=== PATIENT | female | born 1980 | race Caucasian/White ===

== ENCOUNTER 2020-01-20 12:01 | Inpatient (IN) ==
[2020-01-20] MEDS ORDERED: OXYTOCIN 30 UNITS/500 ML BAG IV PRN ×2 (13:20→18:08)
[2020-01-20] MEDS ORDERED: miSOPROStoL 50 MCG TAB PO ONE (13:20)
[2020-01-20 14:24] LABS: Hematocrit (blood only) 36.1 % (37-47); Hemoglobin 11.7 g/dL (12.0-16.0); Mean Corpuscular Hemoglobin 28.6 pg (25-34); Mean Corpuscular Volume 88.3 fL (80-100); Mean Platelet Volume 9.6 fL (7.4-10.4); Platelet Count 262 K/uL (130-400); RDW Standard Deviation 54.7 fL (36.4-46.3); Red Blood Count 4.09 M/uL (4.2-5.4); White Blood Count 11.36 K/uL (4.8-10.8)
[2020-01-20 14:29] LABS: Mean Corpuscular Hgb Conc 32.4 g/dL (32-36)
[2020-01-20 14:37] LABS: Albumin Level 2.4 gm/dl (3.4-5.0); BUN Creatinine Ratio 15.3 (10-20); Creatinine Clr Calc Pharmacy 167.5 ml/min; Est GFR (African American) 131.6; Est GFR (Non-African American) 113.6; Potassium 3.8 mmol/L (3.5-5.1)
[2020-01-20 14:40] LABS: Albumin Globulin Ratio 0.5 (0.9-2); Bilirubin,Total 0.2 mg/dl (0.2-1); Globulin 4.4 gm/dl (2.5-4.0); Total Protein 6.8 gm/dl (6.4-8.2)
--- NOTE | 2020-01-20 18:20 | Obstetrical Progress Note ---
Date of Service January 20, 2020 Subjective Pt doing well FHR; CAT1 Ctx; irregular last FS;89 VE 3/50/-2 Will start Pitocin augmentation Will start GBS prophylaxis Results & Data ([facility]) Vital Signs (Past 12 Hours) Vital Signs Temp Pulse Resp BP 01/20/20 15:15 37.0 C 89 20 132/64 01/20/20 13:06 90 144/67 H 01/20/20 12:56 85 145/70 H 01/20/20 12:50 36.8 C 20 01/20/20 12:47 91 H 150/77 H 01/20/20 12:36 98 H 148/81 H 01/20/20 12:26 105 H 137/82 01/20/20 12:16 90 135/83 01/20/20 12:11 97 H 130/84
[2020-01-20] MEDS ORDERED: PENICILLIN G POTASSIUM 6 MU in DEXTROSE 5% 250 ML IV ONE (18:30)
[2020-01-20] MEDS: LACTATED RINGER'S 1,000 ML IV PRN (18:38)
--- NOTE | 2020-01-20 22:22 | Obstetrical Progress Note ---
Date of Service January 20, 2020 Subjective Pt doing well FHR; CAT1 Ctx; 2-6mins VE; 07/20/2 Pit; 6Mu Results & Data ([facility]) Vital Signs (Past 12 Hours) Vital Signs Temp Pulse Resp BP 01/20/20 19:20 36.7 C 18 01/20/20 19:18 89 147/57 H 01/20/20 19:17 81 158/67 H 01/20/20 18:27 86 135/76 01/20/20 15:15 37.0 C 89 20 132/64 01/20/20 13:06 90 144/67 H 01/20/20 12:56 85 145/70 H 01/20/20 12:50 36.8 C 01/20/20 12:47 91 H 150/77 H 01/20/20 12:36 98 H 148/81 H 01/20/20 12:26 105 H 137/82 01/20/20 12:16 90 135/83 01/20/20 12:11 97 H 130/84
[2020-01-20] MEDS: PENICILLIN G POTASSIUM 3 MU in DEXTROSE 5% 100 ML IV PRN (22:39)
[2020-01-20] MEDS ORDERED: diphenhydrAMINE 50 MG/ML VIAL IV PRN (22:44)
[2020-01-20] MEDS ORDERED: ePHEDrine sulfate 50 MG/ML AMP ONE (22:44)
[2020-01-20] MEDS ORDERED: NALOXONE HCL 1 MG in SODIUM CHLORIDE 0.9% 1000ML 1,000 ML IV PRN (22:44)
[2020-01-20] MEDS ORDERED: ONDANSETRON INJ 2 MG/ML 2 ML VIAL IV PRN (22:44)
[2020-01-20] MEDS ORDERED: ePHEDrine sulfate 50 MG/ML AMP IV PRN (22:44)
[2020-01-20] MEDS ORDERED: BUPIVACAINE 0.25% 30 ML VIAL ONE (22:44)
[2020-01-20] MEDS ORDERED: PROMETHAZINE HCL 25 MG in SODIUM CHLORIDE 0.9% 50 ML IV PRN (22:44)
[2020-01-20] MEDS ORDERED: NALOXONE HCL 0.4 MG/1 ML VIAL/CARP IV PRN (22:44)
[2020-01-20] MEDS ORDERED: fentaNYL 2MCG/ML ROPIVACAINE 1.25MG/ML 100 ML BAG EPI ONE (22:45)
--- NOTE | 2020-01-20 22:45 | Anesthesiology Consultation ---
Date of Service January 20, 2020 Assessment & Plan ASA ASA2 Proposed Anesthesia Anesthesia Type: General Risk / Benefits Reviewed With: PT / POA / Parent / Guardian, Accepts Plan and Informed Consent Obtained History Height/Weight Height: 5 ft 6.5 in Weight: 127.006 kg Allergies Allergy/AdvReac Type Severity Reaction Status Date / Time latex Allergy Severe Rash Verified 01/20/20 12:16 Medications Home Medications Medication Instructions Recorded Confirmed Last Taken cholecalciferol (vitamin D3) 25 mcg PO DAILY 09/18/19 01/20/20 01/20/20 [Vitamin D3] insulin aspart U-100 [Novolog See Rx Instructions .ROUTE .COMPLEX 09/18/19 01/20/20 01/19/20 Flexpen U-100 Insulin] insulin detemir U-100 [Levemir 90 unit SUBCUT AMPM 09/18/19 01/20/20 01/19/20 FlexTouch U-100 Insuln] metformin 1,000 mg PO BID 09/18/19 01/20/20 01/20/20 omeprazole magnesium [Prilosec OTC] 20 mg PO DAILY 12/27/19 01/20/20 01/20/20 prenat.vits,traci,qws-navv-cdbmy 1 tab PO DAILY 12/27/19 01/20/20 01/20/20 [ Vitamin] ferrous sulfate [iron] 325 mg PO DAILY 01/06/20 01/20/20 01/20/20 Active Medications Generic Name Dose Route Start Last Admin Trade Name Freq PRN Reason Stop Dose Admin Lactated Ringer's 1,000 mls @ 125 mls/hr 01/20/20 13:20 01/20/20 19:40 Lr IV 01/22/20 13:19 125 mls/hr .Q8H PRN Infusion L&D Protocol Protocol Penicillin G Potassium 3 mu/ 106 mls @ 100 mls/hr 01/20/20 18:07 01/20/20 22:39 Dextrose IV 01/30/20 18:06 100 mls/hr Q4H PRN Administration Give until delivery Oxytocin 30 units in 500 mls @ 4 mls/hr 01/20/20 18:08 01/20/20 20:25 Pitocin IV 01/22/20 18:07 0.24 units/hr .Q24H PRN 4 mls/hr Labor Induction/Augmentation Titration Protocol 0.24 UNITS/HR Past Medical History Medical History (Updated 01/20/20 @ 12:26 by Osiris Frazier RN) Agoraphobia Anxiety Asthma Diabetes History of pre-eclampsia Low back pain Migraines Panic disorder PTSD (post-traumatic stress disorder) Right hip pain Exercise / Class Metabolic Activity II 4-5 Yardwork/Stairs/Walk up hill Past Surgical History Surgical History (Updated 01/06/20 @ 22:26 by Jaelyn Perry PA-C) No pertinent past surgical history Past Anesthesia History No Hx of Anesthesia Complications and No Family Hx of Anesthesia Complications History of PONV No Hx of PONV and No Hx of Motion Sickness Social History Smoking Status: Never smoker Hx Alcohol Use: No Hx Substance Use: No Review of Systems denies fever/cough/ colds/ chest pain/ SOB/ ZACH Constitutional: no fever and no chills Respiratory: no cough and no dyspnea denies ZACH Cardiovascular: no chest pain and no dyspnea on exertion Physical Exam Vital Signs Last Vital Signs Temp 36.7 C 01/20/20 19:20 Pulse 86 01/20/20 22:42 Resp 18 01/20/20 19:20 BP 145/72 H 01/20/20 22:42 ENMT Mouth: no TMJ abnormality and no dentition abnormality Thyromental Distance: > or= 3.5 Finger Breadths Mallampati Class: II Neck neck extension not limited Respiratory normal respiratory effort; no respiratory distress Auscultation: lungs clear to auscultation bilaterally Cardiovascular Rate/Rhythm: regular rate and regular rhythm Neurologic moves all extremities Psychiatric Orientation: alert and oriented x 3 Testing Laboratory Results 01/20/20 14:08 01/20/20 14:08 01/20/20 01/20/20 20:14 14:14 POC Glucose 111 H 89
[2020-01-20] MEDS ORDERED: fentaNYL citrate 100 MCG/2 ML VIAL ONE (23:24)
[2020-01-20] MEDS ORDERED: ACETAMINOPHEN 1,000 MG/100 ML VIAL IV PRN (23:35)
[2020-01-21] MEDS: PENICILLIN G POTASSIUM 3 MU in DEXTROSE 5% 100 ML IV PRN ×5 (02:45→19:26)
--- NOTE | 2020-01-21 03:47 | Obstetrical Progress Note ---
Date of Service January 21, 2020 Subjective Pt doing well Completed 2 courses of antibx. FHR; CAT1 Ctx; irreg Pit; 6MU VE: /-2 Attempt to AROM with amnio hook - unsuccessful continue with Pitocin augmentation Results & Data ([facility]) Vital Signs (Past 12 Hours) Vital Signs Temp Pulse Resp BP Pulse Ox 01/21/20 03:39 78 97 01/21/20 03:38 88 149/73 H 01/21/20 03:34 77 98 01/21/20 03:29 70 97 01/21/20 03:24 72 97 01/21/20 03:22 75 150/67 H 01/21/20 03:19 72 97 01/21/20 03:14 71 97 01/21/20 03:09 77 97 01/21/20 03:08 68 152/69 H 01/21/20 03:04 79 96 01/21/20 02:59 89 98 01/21/20 02:54 87 152/81 H 97 01/21/20 02:49 87 97 01/21/20 02:44 89 98 01/21/20 02:39 70 97 01/21/20 02:37 69 128/55 L 01/21/20 02:34 65 96 01/21/20 02:29 67 96 01/21/20 02:24 67 95 01/21/20 02:23 64 131/63 01/21/20 02:19 67 95 01/21/20 02:14 78 95 01/21/20 02:10 67 127/61 01/21/20 02:09 71 96 01/21/20 02:04 67 96 01/21/20 01:59 90 98 01/21/20 01:54 66 97 01/21/20 01:52 67 122/58 L 01/21/20 01:49 75 96 01/21/20 01:44 78 96 01/21/20 01:39 73 97 01/21/20 01:37 78 118/58 L 01/21/20 01:34 77 97 01/21/20 01:30 18 01/21/20 01:29 67 97 01/21/20 01:24 64 97 01/21/20 01:22 70 121/58 L 01/21/20 01:19 69 97 01/21/20 01:14 65 95 01/21/20 01:11 72 88 L 01/21/20 01:09 67 127/56 L 96 01/21/20 01:04 69 98 01/21/20 01:00 76 18 87 L 01/21/20 00:59 70 92 01/21/20 00:54 68 97 01/21/20 00:52 71 121/55 L 01/21/20 00:49 65 96 01/21/20 00:44 67 96 01/21/20 00:42 76 88 L 01/21/20 00:39 67 93 01/21/20 00:37 69 113/55 L 89 L 01/21/20 00:34 65 95 01/21/20 00:30 18 01/21/20 00:29 68 96 01/21/20 00:24 71 113/53 L 92 01/21/20 00:19 68 96 01/21/20 00:14 68 95 01/21/20 00:09 70 94 01/21/20 00:08 73 123/57 L 01/21/20 00:04 69 96 01/21/20 00:00 18 01/20/20 23:59 65 95 01/20/20 23:54 72 131/59 L 95 01/20/20 23:49 66 95 01/20/20 23:44 81 96 01/20/20 23:39 80 97 01/20/20 23:37 70 125/59 L 01/20/20 23:35 65 123/58 L 01/20/20 23:34 77 97 01/20/20 23:33 68 130/56 L 01/20/20 23:31 86 133/62 01/20/20 23:30 81 144/64 H 01/20/20 23:29 76 97 01/20/20 23:24 75 97 01/20/20 23:22 75 151/81 H 01/20/20 23:19 83 97 01/20/20 23:14 102 H 98 01/20/20 23:10 102 H 92 01/20/20 23:09 96 H 98 01/20/20 23:04 96 H 98 01/20/20 22:59 96 H 100 01/20/20 22:54 90 99 01/20/20 22:42 86 145/72 H 01/20/20 19:20 36.7 C 18 01/20/20 19:18 89 147/57 H 01/20/20 19:17 81 158/67 H 01/20/20 18:27 86 135/76
[2020-01-21] MEDS: LACTATED RINGER'S 1,000 ML IV PRN ×2 (05:10→14:04)
[2020-01-21] MEDS: fentaNYL 2MCG/ML ROPIVACAINE 1.25MG/ML 100 ML BAG EPI PRN ×4 (05:12→15:13)
--- NOTE | 2020-01-21 11:53 | Obstetrical Progress Note ---
Date of Service January 21, 2020 Assessment & Plan Admission and Anticipated Discharge Date Admission Date: January 20, 2020 Physical Exam Genitourinary: Manual OB Exam: + cervical dilation 4 cm, + cervical effacement 60% and + station high OB Exam Monitor Tracing: + external FHT monitor used, + external uterine monitor used, + category I and + normal FHT variability Results & Data ([facility]) Vital Signs (Past 12 Hours) Vital Signs Temp Pulse Resp BP Pulse Ox 01/21/20 11:49 81 98 01/21/20 11:44 69 95 01/21/20 11:39 81 97 01/21/20 11:38 81 144/68 H 01/21/20 11:34 85 98 01/21/20 11:29 67 94 01/21/20 11:24 68 97 01/21/20 11:23 61 135/72 01/21/20 11:19 66 96 01/21/20 11:14 81 97 01/21/20 11:09 84 96 01/21/20 11:08 80 129/103 H 01/21/20 11:04 94 H 97 01/21/20 10:59 88 97 01/21/20 10:54 81 142/65 H 97 01/21/20 10:49 70 96 01/21/20 10:44 79 96 01/21/20 10:39 92 H 130/65 97 01/21/20 10:34 80 97 01/21/20 10:29 81 97 01/21/20 10:24 81 136/62 97 01/21/20 10:19 81 98 01/21/20 10:14 84 97 01/21/20 10:09 73 136/95 97 01/21/20 10:04 79 97 01/21/20 09:59 83 97 01/21/20 09:54 74 96 01/21/20 09:53 75 133/62 01/21/20 09:49 75 96 01/21/20 09:44 70 96 01/21/20 09:39 84 97 01/21/20 09:37 80 144/65 H 01/21/20 09:34 88 97 01/21/20 09:29 66 96 01/21/20 09:24 72 97 01/21/20 09:19 69 96 01/21/20 09:16 68 88 L 01/21/20 09:14 68 93 09/25/20 09:09 69 93 01/21/20 09:04 67 95 01/21/20 09:02 64 86 L 01/21/20 08:59 64 97 01/21/20 08:54 60 97 01/21/20 08:49 68 96 01/21/20 08:48 74 88 L 01/21/20 08:47 18 01/21/20 08:44 59 L 96 01/21/20 08:42 72 86 L 01/21/20 08:39 65 91 01/21/20 08:36 67 87 L 01/21/20 08:34 64 94 01/21/20 08:30 18 01/21/20 08:29 64 95 01/21/20 08:24 65 95 01/21/20 08:19 70 96 01/21/20 08:14 65 94 01/21/20 08:12 72 89 L 01/21/20 08:09 66 97 01/21/20 08:08 62 20 137/63 01/21/20 08:04 71 96 01/21/20 07:59 77 96 01/21/20 07:54 77 136/112 H 97 01/21/20 07:49 84 98 01/21/20 07:44 81 98 01/21/20 07:40 36.7 C 20 01/21/20 07:39 72 139/67 97 01/21/20 07:34 89 97 01/21/20 07:29 77 97 01/21/20 07:24 73 96 01/21/20 07:23 87 135/62 01/21/20 07:19 79 96 01/21/20 07:14 83 98 01/21/20 07:09 81 97 01/21/20 07:08 77 132/63 01/21/20 07:04 80 97 01/21/20 06:59 82 96 01/21/20 06:54 89 98 01/21/20 06:52 77 136/62 01/21/20 06:49 75 96 01/21/20 06:44 86 97 01/21/20 06:39 83 144/65 H 98 01/21/20 06:34 87 97 01/21/20 06:29 82 96 01/21/20 06:24 72 121/58 L 94 01/21/20 06:19 76 95 01/21/20 06:14 71 93 01/21/20 06:09 75 93 01/21/20 06:07 76 127/58 L 89 L 01/21/20 06:04 65 92 01/21/20 06:01 78 86 L 01/21/20 05:59 73 96 01/21/20 05:55 68 89 L 01/21/20 05:54 64 95 01/21/20 05:52 67 122/58 L 01/21/20 05:49 65 94 01/21/20 05:44 73 95 01/21/20 05:39 72 96 01/21/20 05:37 72 131/59 L 01/21/20 05:34 82 96 01/21/20 05:29 75 96 01/21/20 05:24 74 96 01/21/20 05:23 67 132/59 L 01/21/20 05:19 71 95 01/21/20 05:14 79 96 01/21/20 05:09 78 132/64 97 01/21/20 05:04 73 95 01/21/20 04:59 72 96 01/21/20 04:54 75 97 01/21/20 04:53 75 131/61 01/21/20 04:49 74 96 01/21/20 04:44 74 96 01/21/20 04:39 94 H 97 01/21/20 04:38 75 138/64 01/21/20 04:34 76 96 01/21/20 04:29 86 97 01/21/20 04:24 82 97 01/21/20 04:22 74 138/66 01/21/20 04:19 72 96 01/21/20 04:14 79 97 01/21/20 04:09 78 131/66 97 01/21/20 04:04 95 H 98 01/21/20 03:59 71 95 01/21/20 03:54 76 133/63 95 01/21/20 03:49 79 97 01/21/20 03:44 73 96 01/21/20 03:39 78 97 01/21/20 03:38 88 149/73 H 01/21/20 03:34 77 98 01/21/20 03:29 70 97 01/21/20 03:24 72 97 09/25/20 03:22 75 150/67 H 01/21/20 03:19 72 97 01/21/20 03:14 71 97 01/21/20 03:09 77 97 01/21/20 03:08 68 152/69 H 01/21/20 03:04 79 96 01/21/20 02:59 89 98 01/21/20 02:54 87 152/81 H 97 01/21/20 02:49 87 97 01/21/20 02:44 89 98 01/21/20 02:39 70 97 01/21/20 02:37 69 128/55 L 01/21/20 02:34 65 96 01/21/20 02:29 67 96 01/21/20 02:24 67 95 01/21/20 02:23 64 131/63 01/21/20 02:19 67 95 01/21/20 02:14 78 95 01/21/20 02:10 67 127/61 01/21/20 02:09 71 96 01/21/20 02:04 67 96 01/21/20 01:59 90 98 01/21/20 01:54 66 97 01/21/20 01:52 67 122/58 L 01/21/20 01:49 75 96 01/21/20 01:44 78 96 01/21/20 01:39 73 97 01/21/20 01:37 78 118/58 L 01/21/20 01:34 77 97 01/21/20 01:30 18 01/21/20 01:29 67 97 01/21/20 01:24 64 97 01/21/20 01:22 70 121/58 L 01/21/20 01:19 69 97 01/21/20 01:14 65 95 01/21/20 01:11 72 88 L 01/21/20 01:09 67 127/56 L 96 01/21/20 01:04 69 98 01/21/20 01:00 76 18 87 L 01/21/20 00:59 70 92 01/21/20 00:54 68 97 01/21/20 00:52 71 121/55 L 01/21/20 00:49 65 96 01/21/20 00:44 67 96 01/21/20 00:42 76 88 L 01/21/20 00:39 67 93 01/21/20 00:37 69 113/55 L 89 L 01/21/20 00:34 65 95 01/21/20 00:30 18 01/21/20 00:29 68 96 01/21/20 00:24 71 113/53 L 92 01/21/20 00:19 68 96 01/21/20 00:14 68 95 01/21/20 00:09 70 94 01/21/20 00:08 73 123/57 L 01/21/20 00:04 69 96 01/21/20 00:00 18 01/20/20 23:59 65 95 01/20/20 23:54 72 131/59 L 95
--- NOTE | 2020-01-21 17:02 | Obstetrical Progress Note ---
Date of Service January 21, 2020 Assessment & Plan Admission and Anticipated Discharge Date Admission Date: January 20, 2020 Physical Exam Genitourinary: Manual OB Exam: + cervical dilation 4 cm, + cervical effacement 80%, + station -2 and + amniotic fluid clear OB Exam Monitor Tracing: + external FHT monitor used, + external uterine monitor used, + category I and + normal FHT variability AROM with Amni-hook clear fluid Results & Data ([facility]) Vital Signs (Past 12 Hours) Vital Signs Temp Pulse Resp BP Pulse Ox 01/21/20 16:59 87 99 01/21/20 16:57 90 151/86 H 01/21/20 16:54 81 97 01/21/20 16:49 85 98 01/21/20 16:44 80 99 01/21/20 16:39 77 98 01/21/20 16:34 82 97 01/21/20 16:29 80 98 01/21/20 16:25 76 125/58 L 01/21/20 16:24 77 97 01/21/20 16:19 83 97 01/21/20 16:14 75 97 01/21/20 16:09 65 96 01/21/20 16:04 77 98 01/21/20 15:59 85 98 01/21/20 15:55 64 135/62 01/21/20 15:54 68 96 01/21/20 15:49 62 96 01/21/20 15:44 66 94 01/21/20 15:39 66 97 01/21/20 15:34 72 97 01/21/20 15:29 74 98 01/21/20 15:25 61 22 141/63 H 97 01/21/20 15:24 65 97 01/21/20 15:19 65 96 01/21/20 15:14 77 97 01/21/20 15:09 69 94 01/21/20 15:04 66 96 01/21/20 14:59 67 97 01/21/20 14:56 57 L 115/56 L 01/21/20 14:54 64 97 01/21/20 14:49 62 97 01/21/20 14:44 71 97 01/21/20 14:39 65 97 01/21/20 14:34 69 97 01/21/20 14:29 67 96 01/21/20 14:26 60 116/66 01/21/20 14:24 62 97 01/21/20 14:19 66 96 01/21/20 14:14 65 96 01/21/20 14:09 81 96 01/21/20 14:04 67 97 01/21/20 13:59 69 96 01/21/20 13:55 37.0 C 63 18 134/62 01/21/20 13:54 70 96 01/21/20 13:49 79 97 01/21/20 13:44 90 97 01/21/20 13:39 77 97 01/21/20 13:34 77 96 01/21/20 13:29 79 146/68 H 96 01/21/20 13:24 66 97 01/21/20 13:19 66 97 01/21/20 13:14 63 94 01/21/20 13:09 62 95 01/21/20 13:04 71 95 01/21/20 12:59 66 96 01/21/20 12:54 66 131/60 96 01/21/20 12:49 64 93 01/21/20 12:44 73 95 01/21/20 12:40 65 157/74 H 01/21/20 12:39 63 97 01/21/20 12:34 61 96 01/21/20 12:29 65 96 01/21/20 12:24 69 157/71 H 95 01/21/20 12:19 61 97 01/21/20 12:14 66 96 01/21/20 12:09 66 151/70 H 95 01/21/20 12:04 67 96 01/21/20 11:59 70 96 01/21/20 11:54 80 155/71 H 97 01/21/20 11:49 81 98 01/21/20 11:44 69 95 01/21/20 11:39 81 97 01/21/20 11:38 81 144/68 H 01/21/20 11:34 85 98 01/21/20 11:29 67 94 01/21/20 11:24 68 97 01/21/20 11:23 61 135/72 01/21/20 11:19 66 96 01/21/20 11:14 81 97 01/21/20 11:09 84 96 01/21/20 11:08 80 129/103 H 01/21/20 11:04 94 H 97 09/25/20 10:59 88 97 20 10:54 81 142/65 H 97 20 10:49 70 96 20 10:44 79 96 20 10:39 92 H 130/65 97 20 10:34 80 97 20 10:29 81 97 20 10:24 81 136/62 97 20 10:19 81 98 01/21/20 10:14 84 97 01/21/20 10:09 73 136/95 97 01/21/20 10:04 79 97 01/21/20 09:59 83 97 01/21/20 09:54 74 96 01/21/20 09:53 75 133/62 01/21/20 09:49 75 96 01/21/20 09:44 70 96 01/21/20 09:39 84 97 01/21/20 09:37 80 144/65 H 01/21/20 09:34 88 97 01/21/20 09:29 66 96 01/21/20 09:24 72 97 01/21/20 09:19 69 96 01/21/20 09:16 68 88 L 01/21/20 09:14 68 93 01/21/20 09:09 69 93 01/21/20 09:04 67 95 01/21/20 09:02 64 86 L 01/21/20 08:59 64 97 01/21/20 08:54 60 97 01/21/20 08:49 68 96 01/21/20 08:48 74 88 L 01/21/20 08:47 18 01/21/20 08:44 59 L 96 01/21/20 08:42 72 86 L 01/21/20 08:39 65 91 20 08:36 67 87 L 01/21/20 08:34 64 94 01/21/20 08:30 18 01/21/20 08:29 64 95 01/21/20 08:24 65 95 20 08:19 70 96 01/21/20 08:14 65 94 01/21/20 08:12 72 89 L 01/21/20 08:09 66 97 01/21/20 08:08 62 20 137/63 01/21/20 08:04 71 96 09/25/20 07:59 77 96 09/25/20 07:54 77 136/112 H 97 20 07:49 84 98 20 07:44 81 98 20 07:40 36.7 C 20 20 07:39 72 139/67 97 25/20 07:34 89 97 20 07:29 77 97 20 07:24 73 96 20 07:23 87 135/62 20 07:19 79 96 20 07:14 83 98 20 07:09 81 97 20 07:08 77 132/63 20 07:04 80 97 20 06:59 82 96 20 06:54 89 98 20 06:52 77 136/62 01/20/20 06:49 75 96 20 06:44 86 97 01/21/20 06:39 83 144/65 H 98 01/21/20 06:34 87 97 20 06:29 82 96 20 06:24 72 121/58 L 94 20 06:19 76 95 20 06:14 71 93 20 06:09 75 93 20 06:07 76 127/58 L 89 L 20 06:04 65 92 20 06:01 78 86 L 20 05:59 73 96 20 05:55 68 89 L 20 05:54 64 95 20 05:52 67 122/58 L 01/20/20 05:49 65 94 25/20 05:44 73 95 25/20 05:39 72 96 01/20/20 05:37 72 131/59 L 20 05:34 82 96 01/20/20 05:29 75 96 01/20/20 05:24 74 96 25/20 05:23 67 132/59 L 25/20 05:19 71 95 25/20 05:14 79 96 20 05:09 78 132/64 97 20 05:04 73 95
[2020-01-21] MEDS ORDERED: fentaNYL citrate 100 MCG/2 ML VIAL ONE ×2 (17:20→18:05)
[2020-01-21] MEDS ORDERED: LIDOCAINE HCL 2% MPF (LOCAL) 5 ML VIAL INFIL ONE (17:20)
[2020-01-21] MEDS ORDERED: ePHEDrine sulfate 50 MG/ML AMP ONE (18:04)
[2020-01-21] MEDS ORDERED: BUPIVACAINE 0.25% 30 ML VIAL ONE (18:04)
[2020-01-21] MEDS ORDERED: fentaNYL 2MCG/ML ROPIVACAINE 1.25MG/ML 100 ML BAG EPI ONE (18:05)
[2020-01-21] MEDS ORDERED: NALOXONE HCL 1 MG in SODIUM CHLORIDE 0.9% 1000ML 1,000 ML IV PRN (18:50)
[2020-01-21] MEDS ORDERED: diphenhydrAMINE 50 MG/ML VIAL IV PRN (18:50)
[2020-01-21] MEDS ORDERED: NALOXONE HCL 0.4 MG/1 ML VIAL/CARP IV PRN (18:50)
[2020-01-21] MEDS ORDERED: ePHEDrine sulfate 50 MG/ML AMP IV PRN (18:50)
[2020-01-21] MEDS ORDERED: fentaNYL 2MCG/ML ROPIVACAINE 1.25MG/ML 100 ML BAG EPI PRN (18:50)
--- NOTE | 2020-01-21 20:00 | Delivery Summary ---
Vaginal Delivery Summary Date of Service January 21, 2020 Vaginal Delivery Summary Delivery Note live female LAISHA over intact perineum with Apgars 8/9 weight pending. Delayed cord clamping followed by cord blood and spontaneous delivery of intact placenta with 3VC and true knot x1. No tears. EBL 100 ml. Final sponge and instrument count are correct. Mom and baby stable.
--- NOTE | 2020-01-21 20:16 | Anesthesia Procedure Note ---
Date of Service January 21, 2020 Anesthesia Post Epidural Note Vital Signs Vital Signs: Temp Pulse Resp BP Pulse Ox 36.5 C 102 H 20 157/67 H 98 01/21/20 19:18 01/21/20 20:02 01/21/20 19:36 01/21/20 20:02 01/21/20 19:49 Pain Intensity Abdomen: Pain Intensity: 2 Notes Mental Status: alert / awake / arousable Nausea / Vomiting: adequately controlled Pain: adequately controlled Airway Patency, RR, SpO2: stable & adequate BP & HR: stable & adequate Hydration State: stable & adequate Neuraxial Anesthesia: was administered and sensory block is resolving Anesthetic Complications: no major complications apparent and Pt Satisfied with anesthetic care Epidural: Removed without complications and With tip intact
[2020-01-21] MEDS ORDERED: HYDROCORTISONE ACETATE 25 MG SUPP PR PRN (20:55)
[2020-01-21] MEDS ORDERED: BENZOCAINE 20% AER SPR 82.5 GM CAN EXT PRN (20:55)
[2020-01-21] MEDS ORDERED: DIPHTHERIA/TETANUS/PERTUSSIS 0.5 ML SYR/VIAL IM ONE (20:55)
[2020-01-21] MEDS ORDERED: SUPERCREAM 0.870% 15 GM JAR EXT PRN (20:55)
[2020-01-21] MEDS ORDERED: bisacodyL 10 MG SUPP PR PRN (20:55)
[2020-01-21] MEDS ORDERED: OXYTOCIN 30 UNITS/500 ML BAG IV PRN (20:55)
[2020-01-21] MEDS: ACETAMINOPHEN 325 MG TAB PO PRN (21:13)
[2020-01-21] MEDS: DOCUSATE SODIUM 100 MG CAP PO SCH (21:14)
[2020-01-22] MEDS: ACETAMINOPHEN 325 MG TAB PO PRN ×4 (01:44→20:45)
[2020-01-22 06:36] LABS: Hematocrit (blood only) 35.3 % (37-47); Hemoglobin 11.1 g/dL (12.0-16.0); Mean Corpuscular Hemoglobin 28.1 pg (25-34); Mean Corpuscular Hgb Conc 31.4 g/dL (32-36); Mean Corpuscular Volume 89.4 fL (80-100); Mean Platelet Volume 9.4 fL (7.4-10.4); Platelet Count 246 K/uL (130-400); RDW Coefficient of Variation 17.1 % (11.5-14.5); RDW Standard Deviation 55.3 fL (36.4-46.3); Red Blood Count 3.95 M/uL (4.2-5.4); White Blood Count 11.25 K/uL (4.8-10.8)
[2020-01-22] MEDS: FERROUS SULFATE 325 MG TAB PO SCH (07:40)
[2020-01-22] MEDS: PRENATAL VITAMIN 1 TAB PO SCH (07:40)
[2020-01-22] MEDS: DOCUSATE SODIUM 100 MG CAP PO SCH ×2 (07:40→20:38)
[2020-01-22] MEDS ORDERED: NON-FORMULARY MEDICATION (Prenat.Vits,Cal,Min-Iron-Folic 1 TAB) PO SCH (09:00)
[2020-01-22] MEDS ORDERED: NON-FORMULARY MEDICATION (Ferrous Sulfate [Iron] 325 MG) PO SCH (09:00)
[2020-01-22] MEDS: PANTOprazole 40 MG TAB PO SCH (09:05)
[2020-01-22] MEDS: CHOLECALCIFEROL 1,000 UNITS 25 MCG TAB PO SCH (09:05)
[2020-01-22] MEDS: metFORMIN HCL 500 MG TAB PO SCH ×2 (09:06→17:16)
[2020-01-22] MEDS: IBUPROFEN 600 MG TAB PO PRN ×2 (09:08→17:15)
--- NOTE | 2020-01-22 09:51 | Obstetrical Progress Note ---
Date of Service January 22, 2020 Assessment & Plan Admission and Anticipated Discharge Date Admission Date: January 20, 2020 Subjective Patient is seen and examined. She feels well, no complaints. Ambulating without dizziness Voiding without difficulty Tolerating regular diet with out N&V Bleeding is minimal No fever/ chills/ CP/ SOB/ N&V/ Leg pain Breast feeding without problems Vital Signs Temp Pulse Pulse Resp BP BP Pulse Ox 01/22/20 04:40 36.6 C 76 18 121/78 01/21/20 23:15 36.7 C 93 H 18 132/82 01/21/20 21:54 92 H 143/67 H 01/21/20 21:50 36.7 C 95 H 18 138/71 01/21/20 21:35 84 140/75 01/21/20 21:20 93 H 18 132/65 01/21/20 21:05 101 H 131/63 01/21/20 20:50 93 H 18 132/65 01/21/20 20:35 102 H 18 140/65 01/21/20 20:20 96 H 18 128/89 01/21/20 20:05 18 01/21/20 20:02 102 H 157/67 H 01/21/20 19:50 20 01/21/20 19:49 103 H 98 01/21/20 19:47 83 162/70 H 01/21/20 19:44 94 H 97 01/21/20 19:42 91 H 165/73 H 01/21/20 19:39 113 H 98 01/21/20 19:38 118 H 138/73 01/21/20 19:36 115 H 20 80 L 01/21/20 19:34 99 H 196/82 H 99 01/21/20 19:29 95 H 100 01/21/20 19:28 84 152/78 H 01/21/20 19:24 91 H 173/70 H 99 01/21/20 19:19 81 100 01/21/20 19:18 36.5 C 18 01/21/20 19:17 85 145/70 H 01/21/20 19:14 77 99 01/21/20 19:12 92 H 144/80 H 01/21/20 19:09 84 140/83 97 01/21/20 19:04 97 H 98 01/21/20 19:03 36.5 C 83 18 130/104 H 01/21/20 18:59 72 96 01/21/20 18:58 75 137/71 01/21/20 18:54 84 139/69 96 01/21/20 18:49 78 97 01/21/20 18:47 80 18 137/72 01/21/20 18:44 96 H 97 01/21/20 18:42 82 137/74 01/21/20 18:39 88 96 01/21/20 18:38 88 139/76 01/21/20 18:34 94 H 96 01/21/20 18:33 95 H 136/89 01/21/20 18:29 103 H 20 97 01/21/20 18:27 103 H 138/66 01/21/20 18:24 91 H 143/69 H 96 01/21/20 18:21 98 H 154/72 H 01/21/20 18:20 96 H 86 L 01/21/20 18:19 101 H 96 01/21/20 18:17 109 H 142/80 H 01/21/20 18:14 124 H 98 01/21/20 18:12 103 H 129/80 01/21/20 18:10 87 127/61 01/21/20 18:09 107 H 100 01/21/20 18:04 99 H 165/74 H 96 01/21/20 17:59 75 94 01/21/20 17:58 95 H 22 182/84 H 01/21/20 17:54 69 22 165/74 H 94 01/21/20 17:49 101 H 20 95 01/21/20 17:47 87 155/81 H 01/21/20 17:44 97 H 98 01/21/20 17:43 88 18 150/71 H 01/21/20 17:39 90 97 01/21/20 17:38 74 150/67 H 01/21/20 17:34 88 99 01/21/20 17:33 86 143/75 H 01/21/20 17:29 87 96 01/21/20 17:26 70 149/70 H 01/21/20 17:24 76 97 01/21/20 17:19 80 98 01/21/20 17:14 72 98 01/21/20 17:09 80 99 01/21/20 17:04 82 98 01/21/20 16:59 87 99 09/25/20 16:57 90 151/86 H 01/21/20 16:54 81 97 01/21/20 16:49 85 98 01/21/20 16:44 80 99 01/21/20 16:39 77 98 01/21/20 16:34 82 97 01/21/20 16:29 80 98 01/21/20 16:25 76 125/58 L 01/21/20 16:24 77 97 01/21/20 16:19 83 97 01/21/20 16:14 75 97 01/21/20 16:09 65 96 01/21/20 16:04 77 98 01/21/20 15:59 85 98 01/21/20 15:55 64 135/62 01/21/20 15:54 68 96 01/21/20 15:49 62 96 01/21/20 15:44 66 94 01/21/20 15:39 66 97 01/21/20 15:34 72 97 01/21/20 15:29 74 98 01/21/20 15:25 61 22 141/63 H 97 01/21/20 15:24 65 97 01/21/20 15:19 65 96 01/21/20 15:14 77 97 01/21/20 15:09 69 94 01/21/20 15:04 66 96 01/21/20 14:59 67 97 01/21/20 14:56 57 L 115/56 L 01/21/20 14:54 64 97 01/21/20 14:49 62 97 01/21/20 14:44 71 97 01/21/20 14:39 65 97 01/21/20 14:34 69 97 01/21/20 14:29 67 96 01/21/20 14:26 60 116/66 01/21/20 14:24 62 97 01/21/20 14:19 66 96 01/21/20 14:14 65 96 01/21/20 14:09 81 96 01/21/20 14:04 67 97 01/21/20 13:59 69 96 01/21/20 13:55 37.0 C 63 18 134/62 01/21/20 13:54 70 96 01/21/20 13:49 79 97 01/21/20 13:44 90 97 01/21/20 13:39 77 97 09/25/20 13:34 77 96 25/20 13:29 79 146/68 H 96 25/20 13:24 66 97 25/20 13:19 66 97 01/20/20 13:14 63 94 25/20 13:09 62 95 01/20/20 13:04 71 95 01/20/20 12:59 66 96 01/20/20 12:54 66 131/60 96 01/20/20 12:49 64 93 01/20/20 12:44 73 95 01/20/20 12:40 65 157/74 H 01/20/20 12:39 63 97 01/20/20 12:34 61 96 01/20/20 12:29 65 96 01/20/20 12:24 69 157/71 H 95 01/20/20 12:19 61 97 01/20/20 12:14 66 96 20 12:09 66 151/70 H 95 20 12:04 67 96 20 11:59 70 96 01/20/20 11:54 80 155/71 H 97 01/20/20 11:49 81 98 01/20/20 11:44 69 95 01/20/20 11:39 81 97 01/20/20 11:38 81 144/68 H 20 11:34 85 98 01/20/20 11:29 67 94 01/20/20 11:24 68 97 01/20/20 11:23 61 135/72 01/20/20 11:19 66 96 01/20/20 11:14 81 97 20 11:09 84 96 01/20/20 11:08 80 129/103 H 01/20/20 11:04 94 H 97 01/20/20 10:59 88 97 25/20 10:54 81 142/65 H 97 01/20/20 10:49 70 96 01/20/20 10:44 79 96 01/20/20 10:39 92 H 130/65 97 25/20 10:34 80 97 01/20/20 10:29 81 97 25/20 10:24 81 136/62 97 25/20 10:19 81 98 25/20 10:14 84 97 25/20 10:09 73 136/95 97 01/21/20 10:04 79 97 01/21/20 09:59 83 97 01/21/20 09:54 74 96 01/21/20 09:53 75 133/62 Intake and Output 01/21/20 01/22/20 01/22/20 22:59 06:59 14:59 Intake Total 1688.433 / 2660.716 Output Total 250 / 850 Balance 1438.433 / 1810.716 Intake: IV 1688.433 / 2660.716 Lr 1,000 ml @ 125 mls/hr IV . 741.666 / 1372.916 Q8H PRN Rx#:[id number] PITOCIN 30 units In 500 ml @ 20 817.434 / 946.467 UNITS/HR 333.333 mls/hr IV . Q1H30M PRN Rx#:[id number] Pfizerpen 3 Mu In D5 100 ml @ 129.333 / 341.333 100 mls/hr IV Q4H PRN Rx#: [id number] Output: Urine 250 / 250 Lab Results 01/20/20 01/20/20 01/20/20 Range/Units 14:08 14:08 14:14 WBC 11.36 H (4.8-10.8) K/uL RBC 4.09 L (4.2-5.4) M/uL Hgb 11.7 L (12.0-16.0) g/dL Hct 36.1 L (37-47) % MCV 88.3 (80-100) fL MCH 28.6 (25-34) pg MCHC 32.4 (32-36) g/dL RDW Std Deviation 54.7 H (36.4-46.3) fL RDW Coeff of Marty 17.0 H (11.5-14.5) % Plt Count 262 (130-400) K/uL MPV 9.6 (7.4-10.4) fL Sodium 138 (136-145) mmol/L Potassium 3.8 (3.5-5.1) mmol/L Chloride 107 (98-107) mmol/L Carbon Dioxide 21 (21-32) mmol/L Anion Gap 10.0 (3-11) BUN 9 (7-18) mg/dl Creatinine 0.62 (0.6-1.2) mg/dl Est Cr Clr Drug Dosing 167.5 ml/min Est GFR ( Amer) 131.6 Est GFR (Non-Af Amer) 113.6 BUN/Creatinine Ratio 15.3 (10-20) Glucose 88 (70-99) mg/dl POC Glucose 89 (70-99) mg/dl Calcium 9.0 (8.5-10.1) mg/dl Total Bilirubin 0.2 (0.2-1) mg/dl AST 32 (15-37) U/L ALT 33 (12-78) U/L Alkaline Phosphatase 92 (45-117) U/L Total Protein 6.8 (6.4-8.2) gm/dl Albumin 2.4 L (3.4-5.0) gm/dl Globulin 4.4 H (2.5-4.0) gm/dl Albumin/Globulin Ratio 0.5 L (0.9-2) 01/20/20 01/21/20 01/21/20 Range/Units 20:14 11:08 19:56 WBC (4.8-10.8) K/uL RBC (4.2-5.4) M/uL Hgb (12.0-16.0) g/dL Hct (37-47) % MCV (80-100) fL MCH (25-34) pg MCHC (32-36) g/dL RDW Std Deviation (36.4-46.3) fL RDW Coeff of Marty (11.5-14.5) % Plt Count (130-400) K/uL MPV (7.4-10.4) fL Sodium (136-145) mmol/L Potassium (3.5-5.1) mmol/L Chloride (98-107) mmol/L Carbon Dioxide (21-32) mmol/L Anion Gap (3-11) BUN (7-18) mg/dl Creatinine (0.6-1.2) mg/dl Est Cr Clr Drug Dosing ml/min Est GFR ( Amer) Est GFR (Non-Af Amer) BUN/Creatinine Ratio (10-20) Glucose (70-99) mg/dl POC Glucose 111 H 111 H 119 H (70-99) mg/dl Calcium (8.5-10.1) mg/dl Total Bilirubin (0.2-1) mg/dl AST (15-37) U/L ALT (12-78) U/L Alkaline Phosphatase (45-117) U/L Total Protein (6.4-8.2) gm/dl Albumin (3.4-5.0) gm/dl Globulin (2.5-4.0) gm/dl Albumin/Globulin Ratio (0.9-2) 01/22/20 Range/Units 06:10 WBC 11.25 H (4.8-10.8) K/uL RBC 3.95 L (4.2-5.4) M/uL Hgb 11.1 L (12.0-16.0) g/dL Hct 35.3 L (37-47) % MCV 89.4 (80-100) fL MCH 28.1 (25-34) pg MCHC 31.4 L (32-36) g/dL RDW Std Deviation 55.3 H (36.4-46.3) fL RDW Coeff of Marty 17.1 H (11.5-14.5) % Plt Count 246 (130-400) K/uL MPV 9.4 (7.4-10.4) fL Sodium (136-145) mmol/L Potassium (3.5-5.1) mmol/L Chloride (98-107) mmol/L Carbon Dioxide (21-32) mmol/L Anion Gap (3-11) BUN (7-18) mg/dl Creatinine (0.6-1.2) mg/dl Est Cr Clr Drug Dosing ml/min Est GFR ( Amer) Est GFR (Non-Af Amer) BUN/Creatinine Ratio (10-20) Glucose (70-99) mg/dl POC Glucose (70-99) mg/dl Calcium (8.5-10.1) mg/dl Total Bilirubin (0.2-1) mg/dl AST (15-37) U/L ALT (12-78) U/L Alkaline Phosphatase (45-117) U/L Total Protein (6.4-8.2) gm/dl Albumin (3.4-5.0) gm/dl Globulin (2.5-4.0) gm/dl Albumin/Globulin Ratio (0.9-2) PE: General: Alert, orientedx3, NAD Abd: soft, NT, fundus firm, below Umbilicus Perineum intact, Lochia rubra minimal Ext; NT, no edema AP: 39 yo s/p , ppd# 1 VSS Afebrile doing well Desires d/c tonight Continue routine care All questions were answered D/C home if baby will be discharged Results & Data ([facility]) Vital Signs (Past 12 Hours) Vital Signs Temp Pulse Pulse Resp BP BP 01/22/20 04:40 36.6 C 76 18 121/78 01/21/20 23:15 36.7 C 93 H 18 132/82 01/21/20 21:54 92 H 143/67 H 01/21/20 21:50 36.7 C 95 H 18 138/71
[2020-01-22] MEDS ORDERED: bisacodyL 5 MG TABEC PO SCH (20:00)
[2020-01-23] MEDS: IBUPROFEN 600 MG TAB PO PRN ×4 (02:00→16:43)
[2020-01-23 07:07] LABS: Basophils # (auto) 0.01 K/uL (0-0.2); Basophils % (auto) 0.1 %; Eosinophils # (auto) 0.21 K/uL (0-0.5); Eosinophils % (auto) 2.5 %; Hematocrit (blood only) 35.9 % (37-47); Hemoglobin 10.9 g/dL (12.0-16.0); Immature Granulocytes # (auto) 0.03 K/uL (0.00-0.02); Immature Granulocytes % (auto) 0.4 %; Lymphocytes # (auto) 1.74 K/uL (1.2-3.4); Lymphocytes % (auto) 20.3 %; Mean Corpuscular Hemoglobin 27.8 pg (25-34); Mean Corpuscular Hgb Conc 30.4 g/dL (32-36); Mean Corpuscular Volume 91.6 fL (80-100); Mean Platelet Volume 9.5 fL (7.4-10.4); Monocytes # (auto) 0.51 K/uL (0.11-0.59); Neutrophils # (auto) 6.06 K/uL (1.4-6.5); Neutrophils % (auto) 70.7 %; Platelet Count 240 K/uL (130-400); RDW Coefficient of Variation 17.3 % (11.5-14.5); RDW Standard Deviation 57.4 fL (36.4-46.3); Red Blood Count 3.92 M/uL (4.2-5.4); White Blood Count 8.56 K/uL (4.8-10.8)
[2020-01-23 07:35] LABS: Albumin Level 2.2 gm/dl (3.4-5.0); Calcium 8.7 mg/dl (8.5-10.1); Creatinine Clr Calc Pharmacy 164.8 ml/min; Potassium 4.1 mmol/L (3.5-5.1)
[2020-01-23 07:38] LABS: Albumin Globulin Ratio 0.6 (0.9-2); Bilirubin,Total 0.3 mg/dl (0.2-1); Total Protein 6.2 gm/dl (6.4-8.2)
--- NOTE | 2020-01-23 08:09 | Obstetrical Progress Note ---
Date of Service January 23, 2020 Assessment & Plan Admission and Anticipated Discharge Date Admission Date: January 20, 2020 Subjective Patient is seen and examined. She feels well, no complaints but emotional since baby was started on IVF for hypoglycemia Ambulating without dizziness Voiding without difficulty Tolerating regular diet with out N&V Bleeding is minimal No fever/ chills/ CP/ SOB/ N&V/ Leg pain Breast feeding/ pumping Vital Signs Temp Pulse Resp BP 01/23/20 01:00 36.7 C 80 18 153/76 H 01/22/20 17:08 36.8 C 77 20 138/85 01/22/20 12:30 36.8 C 80 20 133/88 Lab Results 01/20/20 01/20/20 01/20/20 Range/Units 14:08 14:08 14:14 WBC 11.36 H (4.8-10.8) K/uL RBC 4.09 L (4.2-5.4) M/uL Hgb 11.7 L (12.0-16.0) g/dL Hct 36.1 L (37-47) % MCV 88.3 (80-100) fL MCH 28.6 (25-34) pg MCHC 32.4 (32-36) g/dL RDW Std Deviation 54.7 H (36.4-46.3) fL RDW Coeff of Marty 17.0 H (11.5-14.5) % Plt Count 262 (130-400) K/uL MPV 9.6 (7.4-10.4) fL Immature Gran % (Auto) % Neut % (Auto) % Lymph % (Auto) % [place] % (Auto) % Eos % (Auto) % Baso % (Auto) % Neut # (Auto) (1.4-6.5) K/uL Lymph # (Auto) (1.2-3.4) K/uL [place] # (Auto) (0.11-0.59) K/uL Eos # (Auto) (0-0.5) K/uL Baso # (Auto) (0-0.2) K/uL Immature Gran # (Auto) (0.00-0.02) K/uL Sodium 138 (136-145) mmol/L Potassium 3.8 (3.5-5.1) mmol/L Chloride 107 (98-107) mmol/L Carbon Dioxide 21 (21-32) mmol/L Anion Gap 10.0 (3-11) BUN 9 (7-18) mg/dl Creatinine 0.62 (0.6-1.2) mg/dl Est Cr Clr Drug Dosing 167.5 ml/min Est GFR ( Amer) 131.6 Est GFR (Non-Af Amer) 113.6 BUN/Creatinine Ratio 15.3 (10-20) Glucose 88 (70-99) mg/dl POC Glucose 89 (70-99) mg/dl Fasting Glucose (70-99) mg/dl Calcium 9.0 (8.5-10.1) mg/dl Total Bilirubin 0.2 (0.2-1) mg/dl AST 32 (15-37) U/L ALT 33 (12-78) U/L Alkaline Phosphatase 92 (45-117) U/L Total Protein 6.8 (6.4-8.2) gm/dl Albumin 2.4 L (3.4-5.0) gm/dl Globulin 4.4 H (2.5-4.0) gm/dl Albumin/Globulin Ratio 0.5 L (0.9-2) 01/20/20 01/21/20 01/21/20 Range/Units 20:14 11:08 19:56 WBC (4.8-10.8) K/uL RBC (4.2-5.4) M/uL Hgb (12.0-16.0) g/dL Hct (37-47) % MCV (80-100) fL MCH (25-34) pg MCHC (32-36) g/dL RDW Std Deviation (36.4-46.3) fL RDW Coeff of Marty (11.5-14.5) % Plt Count (130-400) K/uL MPV (7.4-10.4) fL Immature Gran % (Auto) % Neut % (Auto) % Lymph % (Auto) % [place] % (Auto) % Eos % (Auto) % Baso % (Auto) % Neut # (Auto) (1.4-6.5) K/uL Lymph # (Auto) (1.2-3.4) K/uL [place] # (Auto) (0.11-0.59) K/uL Eos # (Auto) (0-0.5) K/uL Baso # (Auto) (0-0.2) K/uL Immature Gran # (Auto) (0.00-0.02) K/uL Sodium (136-145) mmol/L Potassium (3.5-5.1) mmol/L Chloride (98-107) mmol/L Carbon Dioxide (21-32) mmol/L Anion Gap (3-11) BUN (7-18) mg/dl Creatinine (0.6-1.2) mg/dl Est Cr Clr Drug Dosing ml/min Est GFR ( Amer) Est GFR (Non-Af Amer) BUN/Creatinine Ratio (10-20) Glucose (70-99) mg/dl POC Glucose 111 H 111 H 119 H (70-99) mg/dl Fasting Glucose (70-99) mg/dl Calcium (8.5-10.1) mg/dl Total Bilirubin (0.2-1) mg/dl AST (15-37) U/L ALT (12-78) U/L Alkaline Phosphatase (45-117) U/L Total Protein (6.4-8.2) gm/dl Albumin (3.4-5.0) gm/dl Globulin (2.5-4.0) gm/dl Albumin/Globulin Ratio (0.9-2) 01/22/20 01/22/20 01/22/20 Range/Units 06:10 10:00 10:01 WBC 11.25 H (4.8-10.8) K/uL RBC 3.95 L (4.2-5.4) M/uL Hgb 11.1 L (12.0-16.0) g/dL Hct 35.3 L (37-47) % MCV 89.4 (80-100) fL MCH 28.1 (25-34) pg MCHC 31.4 L (32-36) g/dL RDW Std Deviation 55.3 H (36.4-46.3) fL RDW Coeff of Marty 17.1 H (11.5-14.5) % Plt Count 246 (130-400) K/uL MPV 9.4 (7.4-10.4) fL Immature Gran % (Auto) % Neut % (Auto) % Lymph % (Auto) % [place] % (Auto) % Eos % (Auto) % Baso % (Auto) % Neut # (Auto) (1.4-6.5) K/uL Lymph # (Auto) (1.2-3.4) K/uL [place] # (Auto) (0.11-0.59) K/uL Eos # (Auto) (0-0.5) K/uL Baso # (Auto) (0-0.2) K/uL Immature Gran # (Auto) (0.00-0.02) K/uL Sodium (136-145) mmol/L Potassium (3.5-5.1) mmol/L Chloride (98-107) mmol/L Carbon Dioxide (21-32) mmol/L Anion Gap (3-11) BUN (7-18) mg/dl Creatinine (0.6-1.2) mg/dl Est Cr Clr Drug Dosing ml/min Est GFR ( Amer) Est GFR (Non-Af Amer) BUN/Creatinine Ratio (10-20) Glucose (70-99) mg/dl POC Glucose 202 H 207 H (70-99) mg/dl Fasting Glucose (70-99) mg/dl Calcium (8.5-10.1) mg/dl Total Bilirubin (0.2-1) mg/dl AST (15-37) U/L ALT (12-78) U/L Alkaline Phosphatase (45-117) U/L Total Protein (6.4-8.2) gm/dl Albumin (3.4-5.0) gm/dl Globulin (2.5-4.0) gm/dl Albumin/Globulin Ratio (0.9-2) 01/22/20 01/23/20 01/23/20 Range/Units 14:37 06:30 06:30 WBC 8.56 (4.8-10.8) K/uL RBC 3.92 L (4.2-5.4) M/uL Hgb 10.9 L (12.0-16.0) g/dL Hct 35.9 L (37-47) % MCV 91.6 (80-100) fL MCH 27.8 (25-34) pg MCHC 30.4 L (32-36) g/dL RDW Std Deviation 57.4 H (36.4-46.3) fL RDW Coeff of Marty 17.3 H (11.5-14.5) % Plt Count 240 (130-400) K/uL MPV 9.5 (7.4-10.4) fL Immature Gran % (Auto) 0.4 % Neut % (Auto) 70.7 % Lymph % (Auto) 20.3 % [place] % (Auto) 6.0 % Eos % (Auto) 2.5 % Baso % (Auto) 0.1 % Neut # (Auto) 6.06 (1.4-6.5) K/uL Lymph # (Auto) 1.74 (1.2-3.4) K/uL [place] # (Auto) 0.51 (0.11-0.59) K/uL Eos # (Auto) 0.21 (0-0.5) K/uL Baso # (Auto) 0.01 (0-0.2) K/uL Immature Gran # (Auto) 0.03 H (0.00-0.02) K/uL Sodium 139 (136-145) mmol/L Potassium 4.1 (3.5-5.1) mmol/L Chloride 108 H (98-107) mmol/L Carbon Dioxide 25 (21-32) mmol/L Anion Gap 6.0 (3-11) BUN 10 (7-18) mg/dl Creatinine 0.63 (0.6-1.2) mg/dl Est Cr Clr Drug Dosing 164.8 ml/min Est GFR ( Amer) 131.0 Est GFR (Non-Af Amer) 113.0 BUN/Creatinine Ratio (10-20) Glucose (70-99) mg/dl POC Glucose 157 H (70-99) mg/dl Fasting Glucose 111 H (70-99) mg/dl Calcium 8.7 (8.5-10.1) mg/dl Total Bilirubin 0.3 (0.2-1) mg/dl AST 26 (15-37) U/L ALT 30 (12-78) U/L Alkaline Phosphatase 85 (45-117) U/L Total Protein 6.2 L (6.4-8.2) gm/dl Albumin 2.2 L (3.4-5.0) gm/dl Globulin 4.0 (2.5-4.0) gm/dl Albumin/Globulin Ratio 0.6 L (0.9-2) 01/23/20 Range/Units 08:01 WBC (4.8-10.8) K/uL RBC (4.2-5.4) M/uL Hgb (12.0-16.0) g/dL Hct (37-47) % MCV (80-100) fL MCH (25-34) pg MCHC (32-36) g/dL RDW Std Deviation (36.4-46.3) fL RDW Coeff of Marty (11.5-14.5) % Plt Count (130-400) K/uL MPV (7.4-10.4) fL Immature Gran % (Auto) % Neut % (Auto) % Lymph % (Auto) % [place] % (Auto) % Eos % (Auto) % Baso % (Auto) % Neut # (Auto) (1.4-6.5) K/uL Lymph # (Auto) (1.2-3.4) K/uL [place] # (Auto) (0.11-0.59) K/uL Eos # (Auto) (0-0.5) K/uL Baso # (Auto) (0-0.2) K/uL Immature Gran # (Auto) (0.00-0.02) K/uL Sodium (136-145) mmol/L Potassium (3.5-5.1) mmol/L Chloride (98-107) mmol/L Carbon Dioxide (21-32) mmol/L Anion Gap (3-11) BUN (7-18) mg/dl Creatinine (0.6-1.2) mg/dl Est Cr Clr Drug Dosing ml/min Est GFR ( Amer) Est GFR (Non-Af Amer) BUN/Creatinine Ratio (10-20) Glucose (70-99) mg/dl POC Glucose 109 H (70-99) mg/dl Fasting Glucose (70-99) mg/dl Calcium (8.5-10.1) mg/dl Total Bilirubin (0.2-1) mg/dl AST (15-37) U/L ALT (12-78) U/L Alkaline Phosphatase (45-117) U/L Total Protein (6.4-8.2) gm/dl Albumin (3.4-5.0) gm/dl Globulin (2.5-4.0) gm/dl Albumin/Globulin Ratio (0.9-2) PE: General: Alert, orientedx3, NAD Abd: soft, NT, fundus firm, below Umbilicus Perineum intact, Lochia rubra minimal Ext; NT, no edema AP: 39 yo s/p , ppd# 2 VSS Afebrile doing well Continue routine care All questions were answered D/C home , f/u in office Results & Data ([facility]) Vital Signs (Past 12 Hours) Vital Signs Temp Pulse Resp BP 01/23/20 01:00 36.7 C 80 18 153/76 H
[2020-01-23] MEDS: PRENATAL VITAMIN 1 TAB PO SCH (08:16)
[2020-01-23] MEDS: FERROUS SULFATE 325 MG TAB PO SCH (08:17)
[2020-01-23] MEDS: DOCUSATE SODIUM 100 MG CAP PO SCH (08:17)
[2020-01-23] MEDS: metFORMIN HCL 500 MG TAB PO SCH ×2 (09:08→16:43)
[2020-01-23] MEDS: PANTOprazole 40 MG TAB PO SCH (09:09)
[2020-01-23] MEDS: CHOLECALCIFEROL 1,000 UNITS 25 MCG TAB PO SCH (09:10)
[2020-01-23] MEDS: ACETAMINOPHEN 325 MG TAB PO PRN (09:13)
[2020-01-23] MEDS ORDERED: HYDROCORTISONE 2.5% CR 30 GM TUBE EXT PRN (12:42)
--- NOTE | 2020-02-22 09:42 | Coding Query ---
CODING QUERY To promote full compliance with coding requirements relating to patient care, provider participation is requested in all cases of skilled laborer uncertainty. Please assist us with the question(s) below: Coding Question(s): Please clarify the reason for induction of labor. 1. Gestational Hypertension at 38 + weeks 2. Diabetes in 3. Asthma Physician's Response(s): Thank you Becky Duenas Principal Diagnosis: "that condition established after study, to be chiefly responsible for occasioning the admission of the patient to the hospital for care." Co-Existing Principal Diagnosis: "when two or more diagnoses equally meet the criteria for principal diagnosis as determined by the circumstances of admission, diagnostic work up, and/or therapy provided, and the Alphabetic Index, Tabular List, or another coding guideline does not provide sequencing direction, any one of the diagnoses may be sequenced first." "When the physician has documented what appears to be a current diagnosis in the body of the record, but has not included the diagnosis in the final diagnostic statement, the physician should be asked whether the diagnosis should be added." ([facility] 2 QTR90. p3-4) JASON
== END 2020-01-23 19:40 | disposition home or self-care (01) | DRG 807 ==
LOC: OPB 12:01 → 4S1 12:02 → 4S2 01-21 22:15